=== PATIENT | male | born 1950 | race Caucasian/White ===

== ENCOUNTER → 2021-01-22 | Outpatient (CLI) | payer MEDICARE ==
[~2021-01-22] MED LIST: ASCO-96 PO; CHOL100012 PO; ESOM40CA PO; MESA800T2 PO; SIMV40TA20 PO
== END | disposition home or self-care (01) ==
LOC: RAD 12:36 → EDSTATUS 13:15
PROVIDERS: ATTEND Nurse Practitioner Family
DX: E04.1 Nontoxic single thyroid nodule (principal); R59.0 Localized enlarged lymph nodes
CPT/HCPCS: 76536